=== PATIENT | male | born 1970 | race Caucasian/White ===

== ENCOUNTER → 2018-03-02 | Outpatient (CLI) | payer OTHER ==
[~2018-03-02] MED LIST: HYDROCODONE BIT1 T11 PO
[2018-03-02 11:57] LABS: BASO # 0.1 10*3/uL (0.0-0.1); BASO % 0.8 % (0.0-1.0); EOS # 0.4 10*3/uL (0.0-0.4); EOS % 3.8 % (1.0-4.0); HEMATOCRIT 47.8 % (42.0-52.0); LYMPH # 2.6 10*3/uL (1.3-4.4); LYMPH % 25.3 % (27.0-41.0); MEAN CELL VOLUME 92.1 fl (80.0-94.0); MEAN CORPUSCULAR HGB 30.8 pg (27.0-31.0); MEAN CORPUSCULAR HGB CONC 33.5 g/dl (33.0-37.0); MEAN PLATELET VOLUME 9.6 fl (9.6-12.3); MONO # 0.8 10*3/uL (0.1-1.0); MONO % 7.6 % (3.0-9.0); NEUT # 6.4 10*3/uL (2.3-7.9); NEUT % 61.9 % (47.0-73.0); PLATELET COUNT AUTOMATED 348 10*3/uL (130-400); RED BLOOD COUNT 5.19 10*6/uL (4.50-5.90); RED CELL DISTRI WIDTH 13.1 % (0-14.5); WHITE BLOOD COUNT 10.4 10*3/uL (4.8-10.8)
[2018-03-02 12:25] LABS: ALBUMIN 3.8 gm/dl (3.1-4.5); ALKALINE PHOSPHATASE 109 U/L (45-117); BUN 10 mg/dl (7-24); CHLORIDE 107 mmol/L (98-107); POTASSIUM 3.5 mmol/L (3.5-5.1); SGOT/AST 28 IU/L (3-35); SGPT/ALT 51 U/L (12-78); SODIUM 141 mmol/L (136-145); TOTAL PROTEIN 7.6 gm/dL (6.4-8.2)
[2018-03-03 08:08] LABS: HEPATITIS B SURFACE AG Negative (Negative); HEPATITIS C VIRUS ANTIBODY <0.1 s/co (0.0-0.9)
== END | disposition home or self-care (01) ==
LOC: LAB 11:04
PROVIDERS: Specialist
DX: L40.0 Psoriasis vulgaris (principal); J43.9 Emphysema, unspecified; Z79.891 Long term (current) use of opiate analgesic; Z87.891 Personal history of nicotine dependence

== ENCOUNTER → 2018-04-11 | Outpatient (CLI) | payer OTHER ==
[2018-04-11 08:27] LABS: BASO # 0.1 10*3/uL (0.0-0.1); BASO % 0.8 % (0.0-1.0); EOS # 0.5 10*3/uL (0.0-0.4); EOS % 5.2 % (1.0-4.0); HEMATOCRIT 47.2 % (42.0-52.0); HEMOGLOBIN 16.1 g/dl (14.0-18.0); LYMPH # 2.6 10*3/uL (1.3-4.4); LYMPH % 25.7 % (27.0-41.0); MEAN CELL VOLUME 92.2 fl (80.0-94.0); MEAN CORPUSCULAR HGB 31.4 pg (27.0-31.0); MEAN CORPUSCULAR HGB CONC 34.1 g/dl (33.0-37.0); MEAN PLATELET VOLUME 9.2 fl (9.6-12.3); MONO # 1.3 10*3/uL (0.1-1.0); MONO % 12.7 % (3.0-9.0); NEUT # 5.5 10*3/uL (2.3-7.9); NEUT % 55.2 % (47.0-73.0); PLATELET COUNT AUTOMATED 313 10*3/uL (130-400); RED BLOOD COUNT 5.12 10*6/uL (4.50-5.90); RED CELL DISTRI WIDTH 13.3 % (0-14.5); WHITE BLOOD COUNT 9.9 10*3/uL (4.8-10.8)
[2018-04-11 08:58] LABS: ALBUMIN 3.9 gm/dl (3.1-4.5); ALKALINE PHOSPHATASE 110 U/L (45-117); BILIRUBIN, DIRECT < 0.1 mg/dL (0.0-0.2); SGOT/AST 25 IU/L (3-35); SGPT/ALT 42 U/L (12-78); TOTAL PROTEIN 7.5 gm/dL (6.4-8.2)
== END | disposition home or self-care (01) ==
LOC: LAB 08:03
PROVIDERS: Specialist
DX: L40.0 Psoriasis vulgaris (principal)

== ENCOUNTER → 2018-05-10 | Outpatient (CLI) | payer OTHER ==
[2018-05-10 08:33] LABS: BASO # 0.1 10*3/uL (0.0-0.1); BASO % 0.7 % (0.0-1.0); EOS # 0.4 10*3/uL (0.0-0.4); HEMOGLOBIN 16.5 g/dl (14.0-18.0); LYMPH # 2.5 10*3/uL (1.3-4.4); LYMPH % 22.5 % (27.0-41.0); MEAN CELL VOLUME 92.5 fl (80.0-94.0); MEAN CORPUSCULAR HGB 31.8 pg (27.0-31.0); MEAN CORPUSCULAR HGB CONC 34.4 g/dl (33.0-37.0); MEAN PLATELET VOLUME 9.4 fl (9.6-12.3); MONO % 9.5 % (3.0-9.0); NEUT # 6.8 10*3/uL (2.3-7.9); NEUT % 62.8 % (47.0-73.0); PLATELET COUNT AUTOMATED 313 10*3/uL (130-400); RED BLOOD COUNT 5.19 10*6/uL (4.50-5.90); RED CELL DISTRI WIDTH 13.2 % (0-14.5); WHITE BLOOD COUNT 10.9 10*3/uL (4.8-10.8)
[2018-05-10 09:13] LABS: ALBUMIN 3.8 gm/dl (3.1-4.5)
[2018-05-10 09:16] LABS: BILIRUBIN, DIRECT 0.1 mg/dL (0.0-0.2); TOTAL PROTEIN 7.3 gm/dL (6.4-8.2)
== END | disposition home or self-care (01) ==
LOC: LAB 07:56
PROVIDERS: Specialist
DX: L40.0 Psoriasis vulgaris (principal)

== ENCOUNTER → 2018-07-24 | Outpatient (CLI) | payer OTHER ==
[2018-07-24 08:32] LABS: BASO # 0.1 10*3/uL (0.0-0.1); BASO % 0.6 % (0.0-1.0); EOS # 0.5 10*3/uL (0.0-0.4); EOS % 4.5 % (1.0-4.0); HEMATOCRIT 50.1 % (42.0-52.0); HEMOGLOBIN 16.9 g/dl (14.0-18.0); LYMPH # 2.8 10*3/uL (1.3-4.4); LYMPH % 26.9 % (27.0-41.0); MEAN CELL VOLUME 92.9 fl (80.0-94.0); MEAN CORPUSCULAR HGB 31.4 pg (27.0-31.0); MEAN CORPUSCULAR HGB CONC 33.7 g/dl (33.0-37.0); MEAN PLATELET VOLUME 9.2 fl (9.6-12.3); MONO # 1.1 10*3/uL (0.1-1.0); NEUT # 5.8 10*3/uL (2.3-7.9); NEUT % 56.5 % (47.0-73.0); PLATELET COUNT AUTOMATED 324 10*3/uL (130-400); RED BLOOD COUNT 5.39 10*6/uL (4.50-5.90); RED CELL DISTRI WIDTH 13.2 % (0-14.5); WHITE BLOOD COUNT 10.3 10*3/uL (4.8-10.8)
[2018-07-24 08:40] LABS: ALBUMIN 3.8 gm/dl (3.1-4.5); ALKALINE PHOSPHATASE 113 U/L (45-117); BILIRUBIN, DIRECT < 0.1 mg/dL (0.0-0.2); SGOT/AST 26 IU/L (3-35); SGPT/ALT 42 U/L (12-78); TOTAL PROTEIN 7.7 gm/dL (6.4-8.2)
== END | disposition home or self-care (01) ==
LOC: LAB 07:49
PROVIDERS: Specialist
DX: L40.0 Psoriasis vulgaris (principal)

== ENCOUNTER → 2019-03-18 | Outpatient (CLI) | payer OTHER ==
[2019-03-18 15:47] LABS: BASO # 0.1 10*3/uL (0.0-0.1); BASO % 0.5 % (0.0-1.0); EOS # 0.5 10*3/uL (0.0-0.4); EOS % 3.9 % (1.0-4.0); HEMATOCRIT 49.5 % (42.0-52.0); HEMOGLOBIN 16.4 g/dl (14.0-18.0); LYMPH # 3.3 10*3/uL (1.3-4.4); LYMPH % 25.8 % (27.0-41.0); MEAN CORPUSCULAR HGB 31.5 pg (27.0-31.0); MEAN CORPUSCULAR HGB CONC 33.1 g/dl (33.0-37.0); MEAN PLATELET VOLUME 9.5 fl (9.6-12.3); MONO # 1.1 10*3/uL (0.1-1.0); MONO % 8.3 % (3.0-9.0); NEUT # 7.8 10*3/uL (2.3-7.9); NEUT % 60.9 % (47.0-73.0); PLATELET COUNT AUTOMATED 321 10*3/uL (130-400); RED BLOOD COUNT 5.21 10*6/uL (4.50-5.90); RED CELL DISTRI WIDTH 13.2 % (0-14.5); WHITE BLOOD COUNT 12.9 10*3/uL (4.8-10.8)
[2019-03-18 16:19] LABS: ALKALINE PHOSPHATASE 107 U/L (45-117); BUN 14 mg/dl (7-24); CHLORIDE 106 mmol/L (98-107); CREATININE 1.05 mg/dL (0.70-1.30); POTASSIUM 4.2 mmol/L (3.5-5.1); SGOT/AST 20 IU/L (3-35); SGPT/ALT 49 U/L (12-78); SODIUM 138 mmol/L (136-145); TOTAL PROTEIN 7.8 gm/dL (6.4-8.2)
== END | disposition home or self-care (01) ==
LOC: LAB 10:10
PROVIDERS: Specialist
DX: L40.0 Psoriasis vulgaris (principal)

== ENCOUNTER → 2019-03-19 | Outpatient (CLI) | payer OTHER ==
[2019-03-19 09:18] LABS: HEMATOCRIT 50.7 % (42.0-52.0); HEMOGLOBIN 16.7 g/dl (14.0-18.0); MEAN CELL VOLUME 94.2 fl (80.0-94.0); MEAN CORPUSCULAR HGB CONC 32.9 g/dl (33.0-37.0); MEAN PLATELET VOLUME 9.9 fl (9.6-12.3); RED BLOOD COUNT 5.38 10*6/uL (4.50-5.90); RED CELL DISTRI WIDTH 13.2 % (0-14.5); WHITE BLOOD COUNT 10.5 10*3/uL (4.8-10.8)
[2019-03-19 09:38] LABS: ALBUMIN 4.1 gm/dl (3.1-4.5); BUN 14 mg/dl (7-24); CHLORIDE 105 mmol/L (98-107); CHOLESTEROL 193 mg/dL (<200); CREATININE 1.06 mg/dL (0.70-1.30); POTASSIUM 3.8 mmol/L (3.5-5.1); SGOT/AST 25 IU/L (3-35); SGPT/ALT 50 U/L (12-78); SODIUM 136 mmol/L (136-145); TRIGLYCERIDES 559 mg/dl (<150)
[2019-03-19 09:40] LABS: ALKALINE PHOSPHATASE 113 U/L (45-117); HDL CHOLESTEROL 24 mg/dl (40-60); TOTAL PROTEIN 7.8 gm/dL (6.4-8.2)
== END | disposition home or self-care (01) ==
LOC: LAB 08:26
PROVIDERS: Family Medicine
DX: E55.9 Vitamin D deficiency, unspecified (principal); L03.90 Cellulitis, unspecified; D72.829 Elevated white blood cell count, unspecified

== ENCOUNTER → 2019-04-09 | Outpatient (CLI) | payer OTHER | END | disposition home or self-care (01) | LOC: LAB 08:35 | DX: E74.9 Disorder of carbohydrate metabolism, unspecified (principal) ==

== ENCOUNTER → 2019-05-13 | Outpatient (CLI) | payer OTHER ==
[2019-05-13 09:46] LABS: MEAN CELL VOLUME 96.1 fl (80.0-94.0); MEAN CORPUSCULAR HGB 31.4 pg (27.0-31.0); MEAN CORPUSCULAR HGB CONC 32.7 g/dl (33.0-37.0); MEAN PLATELET VOLUME 9.2 fl (9.6-12.3); RED BLOOD COUNT 5.1 10*6/uL (4.50-5.90); RED CELL DISTRI WIDTH 13.5 % (0-14.5); WHITE BLOOD COUNT 15.3 10*3/uL (4.8-10.8)
[2019-05-13 10:19] LABS: CHLORIDE 109 mmol/L (98-107); POTASSIUM 3.7 mmol/L (3.5-5.1); SODIUM 141 mmol/L (136-145)
[2019-05-13 10:29] LABS: ALBUMIN 3.8 gm/dl (3.1-4.5); ALKALINE PHOSPHATASE 73 U/L (45-117); BUN 18 mg/dl (7-24); CHOLESTEROL 199 mg/dL (<200); CREATININE 0.91 mg/dL (0.70-1.30); HDL CHOLESTEROL 30 mg/dl (40-60); LDL CHOLESTEROL 109 mg/dL (9-159); SGOT/AST 16 IU/L (3-35); SGPT/ALT 48 U/L (12-78); TOTAL PROTEIN 7.2 gm/dL (6.4-8.2); TRIGLYCERIDES 301 mg/dl (<150); VLDL CHOLESTEROL 60 mg/dL (6-40)
== END | disposition home or self-care (01) ==
LOC: LAB 09:21
PROVIDERS: Nurse Practitioner Family
DX: E55.9 Vitamin D deficiency, unspecified (principal); E78.1 Pure hyperglyceridemia; R73.9 Hyperglycemia, unspecified

== ENCOUNTER → 2019-05-29 | Outpatient (CLI) | payer OTHER | END | disposition home or self-care (01) | LOC: RAD 10:36 | DX: M47.816 Spondylosis without myelopathy or radiculopathy, lumbar region (principal); M25.78 Osteophyte, vertebrae ==

== ENCOUNTER → 2019-08-13 | Outpatient (CLI) | payer OTHER ==
[2019-08-13 09:11] LABS: HEMATOCRIT 48.4 % (42.0-52.0); HEMOGLOBIN 16.2 g/dl (14.0-18.0); MEAN CELL VOLUME 93.1 fl (80.0-94.0); MEAN CORPUSCULAR HGB 31.2 pg (27.0-31.0); MEAN CORPUSCULAR HGB CONC 33.5 g/dl (33.0-37.0); MEAN PLATELET VOLUME 9.6 fl (9.6-12.3); RED BLOOD COUNT 5.2 10*6/uL (4.50-5.90); RED CELL DISTRI WIDTH 13.3 % (0-14.5); WHITE BLOOD COUNT 11.3 10*3/uL (4.8-10.8)
[2019-08-13 09:34] LABS: ALBUMIN 3.7 gm/dl (3.1-4.5); ALKALINE PHOSPHATASE 98 U/L (45-117); BUN 14 mg/dl (7-24); CHLORIDE 110 mmol/L (98-107); CHOLESTEROL 202 mg/dL (<200); CREATININE 1.08 mg/dL (0.70-1.30); HDL CHOLESTEROL 28 mg/dl (40-60); LDL CHOLESTEROL 108 mg/dL (9-159); POTASSIUM 4.1 mmol/L (3.5-5.1); SGOT/AST 27 IU/L (3-35); SGPT/ALT 44 U/L (12-78); SODIUM 140 mmol/L (136-145); TOTAL PROTEIN 7.4 gm/dL (6.4-8.2); TRIGLYCERIDES 328 mg/dl (<150); VLDL CHOLESTEROL 66 mg/dL (6-40)
== END | disposition home or self-care (01) ==
LOC: LAB 08:35
PROVIDERS: Nurse Practitioner Family
DX: R73.03 Prediabetes (principal)

== ENCOUNTER → 2020-01-09 | Outpatient (CLI) | payer OTHER ==
[2020-01-09 08:57] LABS: HEMATOCRIT 49.8 % (42.0-52.0); MEAN CELL VOLUME 91.5 fl (80.0-94.0); MEAN CORPUSCULAR HGB 30.1 pg (27.0-31.0); MEAN CORPUSCULAR HGB CONC 32.9 g/dl (33.0-37.0); MEAN PLATELET VOLUME 9.6 fl (9.6-12.3); RED BLOOD COUNT 5.44 10*6/uL (4.50-5.90); RED CELL DISTRI WIDTH 13.3 % (0-14.5); WHITE BLOOD COUNT 11.5 10*3/uL (4.8-10.8)
[2020-01-09 09:21] LABS: ALBUMIN 3.9 gm/dl (3.1-4.5); ALKALINE PHOSPHATASE 112 U/L (45-117); BUN 12 mg/dl (7-24); CHLORIDE 107 mmol/L (98-107); CHOLESTEROL 194 mg/dL (<200); HDL CHOLESTEROL 22 mg/dl (40-60); POTASSIUM 3.8 mmol/L (3.5-5.1); SGOT/AST 28 IU/L (3-35); SGPT/ALT 43 U/L (12-78); SODIUM 138 mmol/L (136-145); TOTAL PROTEIN 7.9 gm/dL (6.4-8.2); TRIGLYCERIDES 454 mg/dl (<150)
== END | disposition home or self-care (01) ==
LOC: LAB 08:19
PROVIDERS: Family Medicine
DX: E74.9 Disorder of carbohydrate metabolism, unspecified (principal); E78.00 Pure hypercholesterolemia, unspecified; E74.00 Glycogen storage disease, unspecified

== ENCOUNTER → 2020-04-13 | Outpatient (CLI) | payer OTHER ==
[2020-04-13 08:47] LABS: HEMATOCRIT 50.1 % (42.0-52.0); MEAN CELL VOLUME 92.9 fl (80.0-94.0); MEAN CORPUSCULAR HGB 30.8 pg (27.0-31.0); MEAN CORPUSCULAR HGB CONC 33.1 g/dl (33.0-37.0); MEAN PLATELET VOLUME 9.6 fl (9.6-12.3); RED BLOOD COUNT 5.39 10*6/uL (4.50-5.90); RED CELL DISTRI WIDTH 13.2 % (0-14.5); WHITE BLOOD COUNT 10.8 10*3/uL (4.8-10.8)
[2020-04-13 09:13] LABS: ALBUMIN 3.8 gm/dl (3.1-4.5); BUN 13 mg/dl (7-24); CHLORIDE 110 mmol/L (98-107); CHOLESTEROL 202 mg/dL (<200); CREATININE 0.99 mg/dL (0.70-1.30); HDL CHOLESTEROL 22 mg/dl (40-60); SGOT/AST 24 IU/L (3-35); SGPT/ALT 39 U/L (12-78); SODIUM 141 mmol/L (136-145); TRIGLYCERIDES 675 mg/dl (<150)
[2020-04-13 09:15] LABS: ALKALINE PHOSPHATASE 117 U/L (45-117); TOTAL PROTEIN 7.6 gm/dL (6.4-8.2)
== END | disposition home or self-care (01) ==
LOC: LAB 07:59
PROVIDERS: ATTEND Family Medicine
DX: E78.00 Pure hypercholesterolemia, unspecified (principal); E74.00 Glycogen storage disease, unspecified; E74.9 Disorder of carbohydrate metabolism, unspecified; F41.1 Generalized anxiety disorder

== ENCOUNTER → 2020-07-14 | Outpatient (CLI) | payer OTHER ==
[2020-07-14 14:12] LABS: BASO # 0.1 10*3/uL (0.0-0.1); BASO % 0.6 % (0.0-1.0); EOS # 0.6 10*3/uL (0.0-0.4); EOS % 4.6 % (1.0-4.0); HEMATOCRIT 48.2 % (42.0-52.0); LYMPH # 3.4 10*3/uL (1.3-4.4); LYMPH % 26.5 % (27.0-41.0); MEAN CELL VOLUME 89.8 fl (80.0-94.0); MEAN CORPUSCULAR HGB 29.6 pg (27.0-31.0); MEAN PLATELET VOLUME 9.1 fl (9.6-12.3); MONO # 1.1 10*3/uL (0.1-1.0); NEUT # 7.4 10*3/uL (2.3-7.9); NEUT % 58.3 % (47.0-73.0); PLATELET COUNT AUTOMATED 402 10*3/uL (130-400); RED BLOOD COUNT 5.37 10*6/uL (4.50-5.90); RED CELL DISTRI WIDTH 13.2 % (0-14.5); WHITE BLOOD COUNT 12.7 10*3/uL (4.8-10.8)
[2020-07-14 14:45] LABS: ALBUMIN 4.1 gm/dl (3.1-4.5); ALKALINE PHOSPHATASE 108 U/L (45-117); BUN 13 mg/dl (7-24); CHLORIDE 107 mmol/L (98-107); CHOLESTEROL 180 mg/dL (<200); CREATININE 1.07 mg/dL (0.70-1.30); HDL CHOLESTEROL 27 mg/dl (40-60); LDL CHOLESTEROL 106 mg/dL (9-159); POTASSIUM 3.8 mmol/L (3.5-5.1); SGOT/AST 29 IU/L (3-35); SGPT/ALT 36 U/L (12-78); SODIUM 138 mmol/L (136-145); TOTAL PROTEIN 7.9 gm/dL (6.4-8.2); TRIGLYCERIDES 236 mg/dl (<150); VLDL CHOLESTEROL 47 mg/dL (6-40)
[2020-07-17 15:08] LABS: TB1 Ag VALUE 0.13 IU/mL (.)
== END | disposition home or self-care (01) ==
LOC: LAB 13:41
PROVIDERS: Specialist; ATTEND Family Medicine
DX: E78.00 Pure hypercholesterolemia, unspecified (principal); E74.9 Disorder of carbohydrate metabolism, unspecified; Z79.891 Long term (current) use of opiate analgesic

== ENCOUNTER → 2020-11-25 | Outpatient (CLI) | payer OTHER ==
[2020-11-25 09:03] LABS: MEAN CELL VOLUME 93.4 fl (80.0-94.0); MEAN CORPUSCULAR HGB 30.8 pg (27.0-31.0); MEAN PLATELET VOLUME 9.7 fl (9.6-12.3); RED BLOOD COUNT 5.03 10*6/uL (4.50-5.90); RED CELL DISTRI WIDTH 13.3 % (0-14.5); WHITE BLOOD COUNT 11.1 10*3/uL (4.8-10.8)
[2020-11-25 09:35] LABS: ALBUMIN 3.7 gm/dl (3.1-4.5); BUN 14 mg/dl (7-24); CHLORIDE 109 mmol/L (98-107); CHOLESTEROL 188 mg/dL (<200); POTASSIUM 3.5 mmol/L (3.5-5.1); SGOT/AST 21 IU/L (3-35); SGPT/ALT 38 U/L (12-78); SODIUM 140 mmol/L (136-145); TOTAL PROTEIN 7.2 gm/dL (6.4-8.2); TRIGLYCERIDES 243 mg/dl (<150)
[2020-11-25 09:36] LABS: ALKALINE PHOSPHATASE 79 U/L (45-117); CPK 104 U/L (39-308); LDL CHOLESTEROL 116 mg/dL (9-159)
== END | disposition home or self-care (01) ==
LOC: LAB 08:06
PROVIDERS: ATTEND Family Medicine
DX: E78.00 Pure hypercholesterolemia, unspecified (principal); E76.9 Glucosaminoglycan metabolism disorder, unspecified; I10 Essential (primary) hypertension

== ENCOUNTER → 2021-03-08 | Outpatient (CLI) | payer OTHER | END | disposition home or self-care (01) | LOC: RAD 08:39 | PROVIDERS: ATTEND Family Medicine | DX: M25.562 Pain in left knee (principal); M25.561 Pain in right knee ==

== ENCOUNTER → 2021-07-02 | Outpatient (CLI) | payer OTHER | END | disposition home or self-care (01) | LOC: RAD 10:30 | PROVIDERS: ATTEND Family Medicine | DX: M51.37 Other intervertebral disc degeneration, lumbosacral region (principal) ==

== ENCOUNTER → 2021-09-17 | Outpatient (CLI) | payer OTHER | END | disposition home or self-care (01) | LOC: MRI 07:42 | PROVIDERS: ATTEND Student in an Organized Health Care Education/Training Program | DX: M51.36 Other intervertebral disc degeneration, lumbar region (principal); M48.061 Spinal stenosis, lumbar region without neurogenic claudication ==

== ENCOUNTER → 2021-11-22 | Outpatient (CLI) | payer OTHER ==
[2021-11-22 08:29] LABS: HEMATOCRIT 49.7 % (42.0-52.0); MEAN CELL VOLUME 92.4 fl (80.0-94.0); MEAN CORPUSCULAR HGB CONC 33.6 g/dl (33.0-37.0); MEAN PLATELET VOLUME 9.4 fl (9.6-12.3); RED BLOOD COUNT 5.38 10*6/uL (4.50-5.90); WHITE BLOOD COUNT 10.6 10*3/uL (4.8-10.8)
[2021-11-22 08:47] LABS: ALKALINE PHOSPHATASE 109 U/L (45-117); BUN 17 mg/dl (7-24); CHLORIDE 112 mmol/L (98-107); CHOLESTEROL 180 mg/dL (<200); LDL CHOLESTEROL 83 mg/dL (9-159); SGOT/AST 22 IU/L (3-35); SGPT/ALT 31 U/L (12-78); SODIUM 142 mmol/L (136-145); TOTAL PROTEIN 7.4 gm/dL (6.4-8.2); TRIGLYCERIDES 384 mg/dl (<150)
[2021-11-22 08:55] LABS: VITAMIN D, 25-HYDROXY 21.4 ng/mL (30-100)
== END | disposition home or self-care (01) ==
LOC: LAB 07:50
PROVIDERS: ATTEND Family Medicine
DX: Z00.00 Encounter for general adult medical examination without abnormal findings (principal); E74.9 Disorder of carbohydrate metabolism, unspecified; E78.00 Pure hypercholesterolemia, unspecified

== ENCOUNTER → 2022-01-13 | Outpatient (CLI) | payer OTHER ==
[2022-01-13 10:47] LABS: ALKALINE PHOSPHATASE 142 U/L (45-117); BUN 10 mg/dl (7-24); CHLORIDE 105 mmol/L (98-107); CREATININE 1.06 mg/dL (0.70-1.30); POTASSIUM 4.7 mmol/L (3.5-5.1); SGOT/AST 34 IU/L (3-35); SGPT/ALT 54 U/L (12-78); SODIUM 135 mmol/L (136-145); TOTAL PROTEIN 8.2 gm/dL (6.4-8.2)
== END | disposition home or self-care (01) ==
LOC: LAB 10:05
PROVIDERS: ATTEND Family Medicine
DX: E74.9 Disorder of carbohydrate metabolism, unspecified (principal)

== ENCOUNTER → 2022-09-13 | Outpatient (CLI) | payer OTHER ==
[2022-09-13 08:30] LABS: HEMATOCRIT 50.3 % (42.0-52.0); MEAN CELL VOLUME 91.1 fl (80.0-94.0); MEAN CORPUSCULAR HGB 31.2 pg (27.0-31.0); MEAN CORPUSCULAR HGB CONC 34.2 g/dl (33.0-37.0); MEAN PLATELET VOLUME 8.8 fl (9.6-12.3); RED BLOOD COUNT 5.52 10*6/uL (4.50-5.90); RED CELL DISTRI WIDTH 13.2 % (0-14.5); WHITE BLOOD COUNT 10.1 10*3/uL (4.8-10.8)
[2022-09-13 09:02] LABS: ALKALINE PHOSPHATASE 117 U/L (46-116); BUN 9 mg/dl (9-23); CHLORIDE 107 mmol/L (98-107); CHOLESTEROL 159 mg/dL (<200); LDL CHOLESTEROL 97 mg/dL (9-159); SGPT/ALT 27 U/L (10-49); TOTAL PROTEIN 7.5 gm/dL (6.0-8.0); TRIGLYCERIDES 189 mg/dl (<150)
== END | disposition home or self-care (01) ==
LOC: LAB 07:50
PROVIDERS: ATTEND Family Medicine
DX: Z12.5 Encounter for screening for malignant neoplasm of prostate (principal); E74.9 Disorder of carbohydrate metabolism, unspecified; E78.00 Pure hypercholesterolemia, unspecified; I25.10 Atherosclerotic heart disease of native coronary artery without angina pectoris

== ENCOUNTER → 2023-03-20 | Outpatient (CLI) | payer OTHER ==
[2023-03-20 08:19] LABS: HEMATOCRIT 50.2 % (42.0-52.0); MEAN CORPUSCULAR HGB 31.3 pg (27.0-31.0); MEAN CORPUSCULAR HGB CONC 33.7 g/dl (33.0-37.0); MEAN PLATELET VOLUME 9.2 fl (9.6-12.3); RED BLOOD COUNT 5.4 10*6/uL (4.50-5.90); RED CELL DISTRI WIDTH 13.4 % (0-14.5); WHITE BLOOD COUNT 10.4 10*3/uL (4.8-10.8)
[2023-03-20 09:39] LABS: ALKALINE PHOSPHATASE 111 U/L (46-116); BUN 12 mg/dl (9-23); CHLORIDE 109 mmol/L (98-107); CHOLESTEROL 204 mg/dL (<200); POTASSIUM 4.2 mmol/L (3.4-5.1); SGPT/ALT 24 U/L (10-49); TOTAL PROTEIN 7.2 gm/dL (6.0-8.0); TRIGLYCERIDES 600 mg/dl (<150)
[2023-03-20 10:18] LABS: VITAMIN D, 25-HYDROXY 31.6 ng/mL (30-100)
== END | disposition home or self-care (01) ==
LOC: LAB 07:53
PROVIDERS: ATTEND Family Medicine
DX: Z12.5 Encounter for screening for malignant neoplasm of prostate (principal); E55.9 Vitamin D deficiency, unspecified; E78.5 Hyperlipidemia, unspecified; E74.9 Disorder of carbohydrate metabolism, unspecified

== ENCOUNTER → 2023-05-08 | Outpatient (CLI) | payer OTHER ==
[2023-05-08 09:49] LABS: ALKALINE PHOSPHATASE 105 U/L (46-116); BUN 11 mg/dl (9-23); CHLORIDE 111 mmol/L (98-107); CHOLESTEROL 217 mg/dL (<200); LDL CHOLESTEROL 119 mg/dL (9-159); SGPT/ALT 26 U/L (5-49); TOTAL PROTEIN 7.3 gm/dL (6.0-8.0); TRIGLYCERIDES 362 mg/dl (<150)
== END | disposition home or self-care (01) ==
LOC: LAB 08:41
PROVIDERS: ATTEND Family Medicine
DX: E74.9 Disorder of carbohydrate metabolism, unspecified (principal); E78.00 Pure hypercholesterolemia, unspecified

== ENCOUNTER → 2023-10-18 | Outpatient (CLI) | payer OTHER ==
[2023-10-18 09:51] LABS: HEMATOCRIT 50.5 % (42.0-52.0); MEAN CELL VOLUME 91.8 fl (80.0-94.0); MEAN CORPUSCULAR HGB 30.7 pg (27.0-31.0); MEAN CORPUSCULAR HGB CONC 33.5 g/dl (33.0-37.0); MEAN PLATELET VOLUME 9.2 fl (9.6-12.3); RED BLOOD COUNT 5.5 10*6/uL (4.50-5.90); WHITE BLOOD COUNT 12.3 10*3/uL (4.8-10.8)
[2023-10-18 12:21] LABS: ALKALINE PHOSPHATASE 117 U/L (46-116); BUN 13 mg/dl (9-23); CHLORIDE 108 mmol/L (98-107); CHOLESTEROL 171 mg/dL (<200); FREE T4 0.98 ng/dl (0.89-1.76); LDL CHOLESTEROL 96 mg/dL (9-159); POTASSIUM 3.7 mmol/L (3.4-5.1); SGPT/ALT 22 U/L (5-49); TOTAL PROTEIN 7.5 gm/dL (6.0-8.0); TRIGLYCERIDES 248 mg/dl (<150)
== END | disposition home or self-care (01) ==
LOC: LAB 09:23
PROVIDERS: ATTEND Family Medicine
DX: E78.00 Pure hypercholesterolemia, unspecified (principal); E55.9 Vitamin D deficiency, unspecified; E74.9 Disorder of carbohydrate metabolism, unspecified; F41.1 Generalized anxiety disorder; E74.00 Glycogen storage disease, unspecified; R53.83 Other fatigue; G47.00 Insomnia, unspecified

== ENCOUNTER → 2024-10-25 | Outpatient (CLI) | payer OTHER ==
[2024-10-25 08:54] LABS: HEMATOCRIT 48.3 % (42.0-52.0); MEAN CELL VOLUME 91.3 fl (80.0-94.0); MEAN PLATELET VOLUME 9.3 fl (9.6-12.3); RED BLOOD COUNT 5.29 10*6/uL (4.50-5.90); RED CELL DISTRI WIDTH 13.3 % (0-14.5); WHITE BLOOD COUNT 10.2 10*3/uL (4.8-10.8)
[2024-10-25 09:23] LABS: ALKALINE PHOSPHATASE 101 U/L (46-116); BUN 15 mg/dl (9-23); CHLORIDE 112 mmol/L (98-107); CHOLESTEROL 196 mg/dL (<200); FREE T4 0.86 ng/dl (0.89-1.76); LDL CHOLESTEROL 117 mg/dL (9-159); POTASSIUM 3.8 mmol/L (3.4-5.1); SGPT/ALT 23 U/L (5-49); TRIGLYCERIDES 291 mg/dl (<150)
[2024-10-25 10:01] LABS: VITAMIN D, 25-HYDROXY 29.8 ng/mL (30-100)
== END | disposition home or self-care (01) ==
LOC: LAB 08:28
PROVIDERS: ATTEND Family Medicine
DX: E55.9 Vitamin D deficiency, unspecified (principal); R53.83 Other fatigue